=== PATIENT | female | born 1975 | race Caucasian/White ===

== ENCOUNTER 2016-11-11 15:00 | Emergency (ER) | payer MEDICAID ==
[~2016-11-11] VITALS: Ht 157.5 cm; Wt 72.6 kg
[~2016-11-11 15:00] MED LIST: HUMALOG 70/30 SUBQ; METF1000 PO; VIC PO
[2016-11-11 16:10] VITALS: BP 167/89
--- NOTE | 2016-11-11 16:24 | NUR ---
41 YO FEMALE C/O HEADACHE 6/10, DIZZINESS, LEFT EYE BLURRED VISION SINCE 0 ON 11/10/16. A&OX4, VSS, GURNEY TO LOWEST LEVEL, BED RAIL UP, FAMILY AT BEDSIDE.
[2016-11-11] MEDS ORDERED: NAPROXEN 500 MG TAB PO ONE (16:25)
[2016-11-11] MEDS ORDERED: hydrALAZINE 25 MG TAB PO ONE (16:25)
[2016-11-11 18:51] VITALS: BP 139/81
== END 2016-11-11 18:52 | disposition home or self-care (01) ==
LOC: MED 15:00
DX: H53.8 Other visual disturbances (principal); R51 Headache; I10 Essential (primary) hypertension; E11.9 Type 2 diabetes mellitus without complications; E78.5 Hyperlipidemia, unspecified
CPT/HCPCS: 70450; 99284

== ENCOUNTER 2017-10-26 22:11 | Emergency (ER) | payer MEDICAID ==
[~2017-10-26] VITALS: Ht 154.9 cm; Wt 74.8 kg
[~2017-10-26 22:11] MED LIST changes: -VIC PO
[2017-10-26 22:16] VITALS: BP 138/83
--- NOTE | 2017-10-26 22:19 | NUR ---
PT AMBULATED TO BED 9 WITH VSS.
--- NOTE | 2017-10-26 22:25 | NUR ---
PATIENT PRESENTS TO ED WITH RIGHT ABDOMINAL PAIN X4 DAYS. PATIENT STATES SHE FEELS A BUMP, NO BUMP NOTED AT THIS TIME. PATIENTS ABDOMEN IS SOFT, ROUND, NON TENDER AT THIS TIME. PATIENT DENIES FEVER, VOMITING BUT STATES NAUSEA WITH BURNING. PATIENT STATES PAIN LEVEL 7/10 AT THIS TIME. PATIENT NOT IN DISTRESS. ER MD MADE AWARE OF PATIENT STATUS. WILL CONTINUE TO MONITOR.
[2017-10-26] MEDS ORDERED: NACL 0.9% 1,000 ML IV SCH (23:18)
[2017-10-26] MEDS ORDERED: KETOROLAC 30 MG/ML VIAL IVP ONE (23:20)
[2017-10-27 00:38] LABS: BASOPHILS % (AUTO) 0.3 % (0.0-2.0); EOSINOPHILS # (AUTO) 0.2 K/uL (0-0.4); EOSINOPHILS % (AUTO) 1.7 % (0.0-4.0); HEMATOCRIT 33.8 % (36-48); HEMOGLOBIN 11.1 g/dL (12.0-16.0); LYMPHOCYTES # (AUTO) 3.5 K/uL (2.5-16.5); LYMPHOCYTES % (AUTO) 37.5 % (20.5-51.1); MEAN CORPUSCULAR HEMOGLOBIN 29 pg (27-31); MEAN CORPUSCULAR HGB CONC 33 g/dL (33-37); MEAN CORPUSCULAR VOLUME 88.5 fL (80-94); MONOCYTES # (AUTO) 0.5 K/uL (0.8-1.0); MONOCYTES % (AUTO) 5.8 % (1.7-9.3); NEUTROPHILS % (AUTO) 54.7 % (42.2-75.2); PLATELET COUNT (AUTO) 374 K/uL (140-450); RED BLOOD CELL COUNT(AUTO) 3.82 MIL/uL (4.20-5.40); RED CELL DISTRIBUTION WIDTH 13.3 % (11.6-13.7); WHITE BLOOD COUNT (AUTO) 9.2 K/uL (4.8-10.8)
[2017-10-27 00:59] LABS: ALBUMIN 3.5 g/dL (3.4-5.0); ANION GAP 13.2 (8-16); CARBON DIOXIDE 26.1 mmol/L (21-32); CREATININE 0.4 mg/dL (0.6-1.3); POTASSIUM 4.3 mmol/L (3.5-5.1); TOTAL BILIRUBIN 0.1 mg/dL (0.0-1.0)
[2017-10-27 01:03] LABS: APPEARANCE,URINE CLEAR (CLEAR); BILIRUBIN,URINE NEGATIVE (NEGATIVE); BLOOD, URINE NEGATIVE (NEGATIVE); COLOR,URINE YELLOW (YELLOW); LEUKOCYTE ESTERASE ,URINE NEGATIVE (NEGATIVE); NITRITE, URINE NEGATIVE (NEGATIVE); UGLUCOSE 2+ (NEGATIVE)
[2017-10-27 01:34] LABS: RBC,URINE 0-5 (RARE) /HPF (0-5); WBC,URINE 0-5 (RARE) /HPF (0-5)
[2017-10-27 02:03] VITALS: BP 138/83
--- NOTE | 2017-10-27 02:03 | NUR ---
Patient discharged with v/s stable. Written and verbal after care instructions given and explained. Patient alert, oriented and verbalized understanding of instructions. Ambulatory with steady gait. All questions addressed prior to discharge. ID band removed. Patient advised to follow up with PMD. Rx of NAPROSYN, EQUALINE FERROUS SULFATE given. Patient educated on indication of medication including possible reaction and side effects. Opportunity to ask questions provided and answered.
== END 2017-10-27 02:04 | disposition home or self-care (01) ==
LOC: MED 22:11
DX: K29.70 Gastritis, unspecified, without bleeding (principal); E11.9 Type 2 diabetes mellitus without complications; I10 Essential (primary) hypertension; Z90.49 Acquired absence of other specified parts of digestive tract; Z79.84 Long term (current) use of oral hypoglycemic drugs
CPT/HCPCS: 36415; 74176; 80053; 81001; 83690; 85025; 96372; 99285; J1885

== ENCOUNTER 2021-03-08 22:33 | Emergency (ER) | payer MEDICAID, SELFPAY ==
[~2021-03-08] VITALS: Ht 157.5 cm; Wt 63.5 kg
[~2021-03-08 22:33] MED LIST changes: +ASPI-1749 PO; +GLIP5TER PO; +INSU100S53 SC; +LISI-486 PO; +SIMV20TA1 PO; +SITA100T8 PO
[2021-03-08 22:49] VITALS: BP 150/76
--- NOTE | 2021-03-08 22:49 | NUR ---
TO BED AMBULATORY
--- NOTE | 2021-03-08 23:00 | NUR ---
RECEIVED OIN BED 6 WITH C/O GENERALIZED ABD PAIN, NAUSEA YESTERDAY. IS AWAKE AND ALERT, SKIN WARM AND DRY.
--- NOTE | 2021-03-08 23:20 | NUR ---
Dr. Best examining patient.
[2021-03-08] MEDS ORDERED: ALUMINUM HYD/MAG/SIMETHICONE 30 ML UDC PO ONE (23:45)
[2021-03-09 01:06] LABS: APPEARANCE,URINE CLEAR (CLEAR); BILIRUBIN,URINE NEGATIVE (NEGATIVE); BLOOD, URINE NEGATIVE (NEGATIVE); COLOR,URINE YELLOW (YELLOW); LEUKOCYTE ESTERASE ,URINE NEGATIVE (NEGATIVE); NITRITE, URINE NEGATIVE (NEGATIVE); UGLUCOSE NEGATIVE (NEGATIVE)
[2021-03-09] MEDS ORDERED: MORPHINE SULFATE 4 MG/ML SYR IM ONE (02:10)
[2021-03-09] MEDS ORDERED: SUCRALFATE 1 GM TAB PO SCH (02:10)
[2021-03-09 02:35] VITALS: BP 150/76
--- NOTE | 2021-03-09 02:35 | NUR ---
Patient discharged with v/s stable. Written and verbal after care instructions given and explained. Patient verbalized understanding. Ambulatory with steady gait. All questions addressed prior to discharge. Advised to follow up with PMD.
== END 2021-03-09 02:35 | disposition home or self-care (01) ==
LOC: MED 22:33
DX: K29.70 Gastritis, unspecified, without bleeding (principal); E11.9 Type 2 diabetes mellitus without complications; I10 Essential (primary) hypertension; Z87.442 Personal history of urinary calculi; Z79.4 Long term (current) use of insulin; Z79.899 Other long term (current) drug therapy
CPT/HCPCS: 81003; 81025; 96372; 99283; J2270